=== PATIENT | male | born 1945 | race Caucasian/White ===

== ENCOUNTER 2025-05-22 07:50 | Outpatient (RCR) | payer OTHER, SELFPAY ==
--- NOTE | 2025-05-22 10:13 | CTCCONSULT_ITS ---
Patient: MONISHA ALSTON : 1945 MR#: [id number] Page 2 of 3 CONSULTATION NOTE DATE OF CONSULTATION: 05/22/2025 NAME: MONISHA ALSTON ACCOUNT: [id number] : 1945 AGE: 80 REFERRING PHYSICIAN: Fritz Casper MD PRIMARY PHYSICIAN: Fritz Casper MD REASON FOR VISIT: Hepatocellular cancer ONCOLOGY HISTORY: DIAGNOSIS: Hepatocellular cancer DATE OF DIAGNOSIS: 10/2024 STAGE/TNM: Stleast 2 spots TREATMENT HISTORY: Care?Plan Start?Date Cycle Day Intent HISTORY OF PRESENT ILLNESS: 80-year-old male WITH NEW DAIGNOSIS OF HCC. Patient is planned for . Patient have bilateral knee issues. OTHER MEDICAL HISTORY/CONDITIONS: Hepatocellar carcinoma dx 02/14/2025 Diabetes Pulmonary sarcodosis Hyperlipidemia HTN GERD CVA - 2 yrs ago Dizziness Right?TKA?-?6?yrs?ago FAMILY HISTORY: Cancer History:?Denies- family not known SOCIAL HISTORY: Occupational?History:?Retired -[employer] x 11 yrs/ Retired Building Architectural Design[employer] Education?Level:?College Graduate, 4 year degree Marital?Status:? Tobacco?Use:?Denies ETOH?Use:?Denies Drug?Note:?Denies Social History Note:?Lives at [facility] - alone MEDICATIONS: 1. alfuzosin - 10 mg 1 tab Daily 2. aspirin - 81 mg 1 tab Daily 3. atorvastatin - 80 mg 1 tab Every day before sleep 4. Calcium 600 + D(3) - 600 mg-10 mcg (400 unit) 1 tab Daily 5. cyanocobalamin (vitamin B-12) - 1,000 mcg 1 tab Daily 6. empagliflozin - 25 mg 1 tab Daily 7. fluticasone furoate - 50 mcg/actuation 1 dose Twice a Day 8. glipiZIDE - 5 mg 1 tab Twice a Day 9. glucose - 4 gram 4 tab As directed 10. guaiFENesin CR - 600 mg 1 tab Twice a Day 11. lidocaine - 5 % 1 Patch Daily 12. Meclizine Hcl Chewable - 25 mg 0.5 tab Twice a Day 13. metoprolol tartrate - 50 mg 1 tab Twice a Day 14. montelukast - 10 mg 1 tab Daily 15. multivitamin - 1 tab Daily 16. omeprazole - 40 mg 1 Capsule Twice a Day 17. SITagliptin - 50 mg 1 tab Every day before sleep Medications Last Reconciled by Natalie Lee RN on 05/22/2025 ALLERGIES: No Known Drug Allergies REVIEW OF SYSTEMS: A complete 14-point review of systems was performed and is negative except as noted in interval history. PHYSICAL EXAMINATION: VITAL SIGNS: Temperature?97.8, B/P?105/73, Height?68?inches, Oxygen?Saturation?93% Weight?224?lbs PAIN: 8 - Very severe pain ECOG Performance Status: 0 - Asymptomatic and fully active GENERAL APPEARANCE: Appears well, in no apparent distress, appropriately interactive. HEENT: Normocephalic, no temporal wasting, normal conjunctiva, no scleral icterus, normal hearing, lips without lesions, neck normal range of motion. CARDIOVASCULAR: Not assessed. PULMONARY: Normal respiratory effort, no respiratory distress or use of accessory muscles, speaking in full sentences, no tachypnea. EXTREMITIES: No pedal edema or cyanosis. SKIN: Normal skin appearance. NEUROLOGIC: Alert and oriented x4. PSHYCHIATRIC: Appropriate affect, mood normal, behavior normal, intact thought and speech. LABORATORY DATA: I have personally reviewed and interpreted each of the patient?s relevant lab tests, abnormal findings are below: Date ASSESSMENT/PLAN: Hepatocellular cancer Port placement Will start on immunotherapy after y 90 Mri liver to stage patient Hepatitis p[temo 6 weeks ORDERS: Order # Description [id number] MRI + With W/O Contrast [id number] Comprehensive Metabolic Panel - 12 + Hep A, B and C panel + CBC with Auto Diff + AFP [id number] Thyroid Stimulating Hormone + Assay Triiodothyronine (T3) [id number] RETURN TO CLINIC: I reviewed the diagnosis, prognosis, and recommended treatment/procedure options with the patient (and/or their legal electronics parts sales representative), including the potential benefits, risks, side effects and alternative therapies. We also discussed the option of no treatment and the possibility of clinical trial participation, if applicable. All questions were addressed, and they demonstrated understanding. They provided informed consent to proceed with the proposed plan of care. BILLING AND COMPLIANCE: I reviewed external records from providers outside my specialty as summarized above. I spent a total of 50 minutes on this patient?s care on the day of their visit excluding time spent related to any billed procedures. This time includes time spent with the patient as well as time spent documenting in the medical record, reviewing patients records and tests, obtaining history, placing orders, communicating with other healthcare professionals, counseling the patient, family or caregiver, and/or care coordination for the diagnoses above. Electronically Signed by: Fritz Casper MD T: 10:11 AM CC: PCP: Fritz Casper Referring: Fritz Casper This document was completed utilizing speech recognition software. Grammatical errors, random word insertions, pronoun errors, and incomplete sentences are an occasional consequence of this system due to software limitations, ambient noise, and hardware issues. Any formal questions or concerns about the content, text or information contained within the body of this dictation should be directly addressed to the provider for clarification.
== END 2025-06-09 23:59 | disposition home or self-care (01) ==
LOC: SCTC 07:50
PROVIDERS: PCP Physician Assistant; Referring Provider Internal Medicine Hematology & Oncology; Visit Provider Internal Medicine Hematology & Oncology
DX: C22.0 Liver cell carcinoma (principal)
CPT/HCPCS: 99213; G0463